=== PATIENT | female | born 1965 | race Caucasian/White ===

== ENCOUNTER 2017-01-10 18:59 | Observation (INO) | payer SELFPAY ==
[~2017-01-10] VITALS: Ht 152.4 cm; Wt 61.0 kg
[~2017-01-10 18:59] MED LIST: MECL-62 PO
[2017-01-10 20:00] VITALS: BP 106/70; PULSE 62; RESP 16; TEMP 98.6; O2SAT 98
[2017-01-10] MEDS ORDERED: SENNOSIDES 8.6 MG TAB PO PRN (20:30)
[2017-01-10] MEDS ORDERED: BISACODYL 10 MG SUPP RECTAL PRN (20:30)
[2017-01-10] MEDS ORDERED: MAGNESIUM HYDROXIDE SUSP 30 ML CUP PO PRN (20:30)
[2017-01-10] MEDS ORDERED: LACTULOSE SYRUP 20 GM/30 ML CUP PO PRN (20:30)
[2017-01-10] MEDS ORDERED: ONDANSETRON HCL 4 MG/2 ML VIAL IVP PRN (20:30)
[2017-01-10] MEDS ORDERED: SODIUM CHLORIDE 0.9% FLUSH 10 ML FLUSH IV FLUSH PRN (20:30)
[2017-01-10] MEDS ORDERED: NALOXONE HCL 0.4 MG/ML AMP IV PUSH PRN (20:30)
[2017-01-10] MEDS ORDERED: DOCUSATE SODIUM 50 MG/SENNA 8.6 MG TAB PO SCH (21:00)
[2017-01-10] MEDS: SODIUM CHLORIDE 0.9% FLUSH 10 ML FLUSH IV FLUSH SCH (22:14)
[2017-01-10] MEDS: ACETAMINOPHEN 325 MG TAB PO PRN (22:15)
[2017-01-10 23:49] VITALS: BP 113/67; PULSE 81; RESP 18; TEMP 97.4; O2SAT 97
[2017-01-11] MEDS: ACETAMINOPHEN 325 MG TAB PO PRN (04:05)
[2017-01-11] MEDS ORDERED: MECLIZINE HCL 25 MG TAB PO PRN (07:45)
[2017-01-11 07:56] LABS: AUTOMATED NEUTROPHIL # 11.5 TH/MM3 (1.8-7.7); BASOPHIL % 0.1 % (0.0-2.0); EOSINOPHIL # 0.1 TH/MM3 (0-0.4); EOSINOPHIL % 0.9 % (0.0-4.0); HEMATOCRIT 40.2 % (35.0-46.0); HEMO FLAGS DIFF FINAL; LYMPH % 15.3 % (9.0-44.0); LYMPHOCYTE # 2.2 TH/MM3 (1.0-4.8); MEAN CELL VOLUME 95.2 FL (80.0-100.0); MEAN CORPUSCULAR HEMOGLOBIN 32.4 PG (27.0-34.0); MONO % 5.6 % (0.0-8.0); NEUT % 78.1 % (16.0-70.0); PLATELET COUNT 245 TH/MM3 (150-450); RED BLOOD COUNT 4.22 MIL/MM3 (4.00-5.30); RED CELL DISTRIBUTION WIDTH 12.9 % (11.6-17.2); WHITE BLOOD COUNT 14.6 TH/MM3 (4.0-11.0)
[2017-01-11 08:00] VITALS: BP_SYST 104; BP_SYST 106; BP_SYST 112; BP_DIAS 54; BP_DIAS 55; BP_DIAS 65; PULSE 60; RESP 16; TEMP 97.9; O2SAT 98
[2017-01-11 08:01] LABS: CHLORIDE 107 MEQ/L (98-107); POTASSIUM 3.8 MEQ/L (3.5-5.1); SODIUM (NA) 139 MEQ/L (136-145)
[2017-01-11 08:10] LABS: ALT (GPT) 30 U/L (10-53); ANION GAP 9 MEQ/L (5-15); AST (GOT) 13 U/L (15-37); BICARBONATE 22.7 MEQ/L (21.0-32.0); BLOOD UREA NITROGEN 13 MG/DL (7-18); GLOMERULAR FILTRATION RATE 100 ML/MIN (>89)
[2017-01-11 08:11] LABS: TOTAL BILIRUBIN ADULT 1.1 MG/DL (0.2-1.0)
[2017-01-11 08:12] LABS: ALKALINE PHOSPHATASE 58 U/L (45-117)
[2017-01-11] MEDS: SODIUM CHLORIDE 0.9% FLUSH 10 ML FLUSH IV FLUSH SCH (09:18)
--- NOTE | 2017-01-11 09:27 | RADRPT ---
EXAM DATE/TIME: 01/11/2017 07:47 [facility] COMPARISON: No previous studies available for comparison. INDICATIONS : Vertigo. MEDICAL HISTORY : Neck pain. Glasses. Dizziness. Headache. Numbness. SURGICAL HISTORY : None. ENCOUNTER: Initial ACUITY: 2 weeks PAIN SCORE: 1/10 LOCATION: Bilateral neck PEAK SYSTOLIC VELOCITIES (cm/sec): ICA/CCA RATIO: Right: 0.9 Left: 1.2 ICA: Right: 77.4 Left: 91.4 CCA: Right: 89.8 Left: 77.1 ECA: Right: 88.0 Left: 110.8 VERTEBRAL: Right: 48.2 antegrade Left: 74.5 antegrade Elevated flow velocities and ICA/CCA ratios have been found to correlate with increased degrees of vessel stenosis, calculated as percentage of diameter relative to a normal segment of distal ICA/CCA FINDINGS: RIGHT CAROTID: Mild plaque formation in the internal carotid artery. No significant stenosis is visualized. The wa veforms are within normal limits. LEFT CAROTID: Mild plaque formation in the internal carotid artery. No significant stenosis is visualized. The wa veforms are within normal limits. VERTEBRAL ARTERIES: Antegrade flow is seen in both vertebral arteries. MISCELLANEOUS: None. CONCLUSION: Mild plaque formation with hemodynamic profile characteristic of less than 50% stenosis. Bry Kowalski MD on January 11, 2017 at 9:24 Board Certified Radiologist. This report was verified electronically.
--- NOTE | 2017-01-11 09:36 | RADRPT ---
EXAM DATE/TIME: 01/11/2017 08:50 [facility] COMPARISON: No previous studies available for comparison. INDICATIONS : Dizziness. Vertigo and right sided fall for 10 days. MEDICAL HISTORY : None. SURGICAL HISTORY : None. ENCOUNTER: Initial ACUITY: 2 weeks PAIN SCORE: 0/10 LOCATION: cranial TECHNIQUE: Multiplanar, multisequence MRI of the brain was performed without contrast. FINDINGS: CEREBRUM: The ventricles are normal for age. No evidence of midline shift, mass lesion, hemorrhage or acute in farction. Incidental note of cavum septum pellucidum. No extraaxial fluid collections are seen. Th e pituitary gland and suprasellar cistern are normal in configuration. WHITE MATTER: There are scattered isolated areas of T2 prolongation, the largest is in the posterior left parietal mid convexity measuring 13 mm with oval shape perpendicular to the axis of the ventricles. Other 1 c m areas of signal are present in the right occipital, left frontal and right frontoparietal region. There were also several rounded areas of T2 prolongation in the cerebellar white matter and one oval area of T2 prolongation in the lateral left cerebellar hemisphere measuring 7 mm. POSTERIOR FOSSA: The cerebellum and brainstem are intact. The 4th ventricle is midline. The cerebellopontine angle is unremarkable. The cerebellar tonsils are normal in position. DIFFUSION IMAGING: No focal areas of restricted diffusion are seen. No evidence of acute infarction. EXTRACRANIAL: The visualized portions of the orbits and paranasal sinuses are unremarkable. CONCLUSION: 1. No evidence of acute blood products or mass effect. 2. Multiple isolated areas of T2 prolongation in the super infratentorial white matter suggesting pos sible demyelinating process such as multiple sclerosis. Bry Kowalski MD on January 11, 2017 at 9:31 Board Certified Radiologist. This report was verified electronically.
--- NOTE | 2017-01-11 10:33 | HHI.HP ---
[facility] Julio César Hroton M.D. Admission Diagnosis Diagnoses: (1) Dizziness Diagnosis: Principal Chief Complaint: Dizziness Travel History International Travel<30 Days: No Contact w/Intl Traveler <30 Da: No History of Present Illness Written by Atilio Camargo, acting as scribe for Dr. Newby on 01/11/17 at 10 :32. 51-year-old female with no chronic medical illnesses who presented to the hospital because of dizziness, vertigo. Patient indicates that her symptoms started on December 31 with dizziness. She states that happened spontaneously when she was sleeping she woke up and had significant dizziness. Whenever she got up to walk she felt as if the room was tilted. She had intermittent nausea with episodic vomiting. He went to the emergency department multiple times and was given Antivert and discharge home. Her last evaluation with ER she was recommended to be admitted, however she left AGAINST MEDICAL ADVICE. Because the medications weren't working and she was not getting any better she went back to emergency department and subsequently admitted for further evaluation and management. Patient states that she has had this in the past and had full workups done. She has undergone this tubular therapy without any improvement. She indicates her last episode was 3 years ago which lasted approximately 3 months. She's not had any other episodes since then. She does not indicate that she is ever undergone any MRI or carotid evaluation. Anatomic value patient she is sitting up in bed. Turning her head side to side without any complications. However when discussing her symptoms with her she states that hers dizziness only happens when she moves herself in different positions. She denies any frequent flights, boat trips, travel. 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 Patient has not had any nausea or vomiting since being here the hospital. Review of Systems Constitutional: COMPLAINS OF: Dizziness Except as stated in HPI: all other systems reviewed are Neg Past Family Social History Past Medical History No chronic medical illnesses Past Surgical History No previous surgeries Reported Medications No chronic home medications Allergies: Coded Allergies: codeine (Verified Allergy, Severe, SEVERE ABDOMINAL PAIN, 01/09/17) abdominal pain Family History Reviewed is significant for heart disease, diabetes and cancer Social History She continues smoke a half a pack a cigarettes a day since she was 18 years old. She drinks alcohol on the weekends. Denies any illicit drugs Physical Exam Vital Signs Vital Signs Date Time Temp Pulse Resp B/P (MAP) Pulse Ox O2 Delivery O2 Flow Rate FiO2 01/11/17 08:00 97.9 60 16 112/54 (73) 98 104/55 (71) 106/65 (79) 01/10/17 23:49 97.4 81 18 113/67 (82) 97 01/10/17 23:15 16 01/10/17 20:00 98.6 62 16 106/70 (82) 98 Physical Exam GENERAL: Well-developed, well-nourished, in no acute distress. alert and orientated HEENT: Head is normocephalic without any lesions or masses noted. Facial features are symmetric. Eyes: Pupils equal round reactive to light. Extraocular muscles are intact. Conjunctivae were clear. No nystagmus Oropharyngeal: Pharynx without any erythema edema. Tongue is midline without deviation. Buccal mucosa is moist without any masses or lesions NECK: Supple without any masses. Trachea midline no deviation. No JVD, no bruits are appreciated. Patient does have palpable paraspinal muscles which are of the cervical spine and spasm noted at C3-C4. There is pain on range of motion of the cervical spine. Upon rotating the head there is no symptoms of dizziness. With neck flexion patient indicates that she did have some dizziness. CARDIAC: Regular rhythm, regular rate. S1/S2 are heard. No murmurs gallops or rubs. LUNGS: Clear to auscultation bilaterally. No wheeze, rhonchi or rales. No use of accessory muscles on inspiration or expiration. ABDOMEN: Soft, nontender. Nondistended. Bowel sounds heard in all 4 quadrants. No organomegaly or masses. Negative rebound, negative guarding EXTREMITIES: No edema, pulses are equal bilaterally. No cyanosis or clubbing NEUROLOGY: Mood and affect appear appropriate. Cranial nerves II through XII grossly intact. Muscle strength 5/5 in upper and lower extremities bilaterally. Deep tendon reflexes are 2+ in upper and lower extremities bilaterally. Laboratory Laboratory Tests Test 01/11/17 06:53 White Blood Count 14.6 Red Blood Count 4.22 Hemoglobin 13.6 Hematocrit 40.2 Mean Corpuscular Volume 95.2 Mean Corpuscular Hemoglobin 32.4 Mean Corpuscular Hemoglobin Concent 34.0 Red Cell Distribution Width 12.9 Platelet Count 245 Mean Platelet Volume 7.9 Neutrophils (%) (Auto) 78.1 Lymphocytes (%) (Auto) 15.3 Monocytes (%) (Auto) 5.6 Eosinophils (%) (Auto) 0.9 Basophils (%) (Auto) 0.1 Neutrophils # (Auto) 11.5 Lymphocytes # (Auto) 2.2 Monocytes # (Auto) 0.8 Eosinophils # (Auto) 0.1 Basophils # (Auto) 0.0 CBC Comment DIFF FINAL Differential Comment Blood Urea Nitrogen 13 Creatinine 0.63 Random Glucose 114 Total Protein 6.6 Albumin 3.1 Calcium Level 9.0 Alkaline Phosphatase 58 Aspartate Amino Transf (AST/SGOT) 13 Alanine Aminotransferase (ALT/SGPT) 30 Total Bilirubin 1.1 Sodium Level 139 Potassium Level 3.8 Chloride Level 107 Carbon Dioxide Level 22.7 Anion Gap 9 Estimat Glomerular Filtration Rate 100 Result Diagram: 01/11/17 0653 01/11/17 0653 Imaging Last Impressions Carotid Artery Ultrasound 01/11/17 0713 Signed Impressions: Service Date/Time: December 07:47 - CONCLUSION: Mild plaque formation with hemodynamic profile characteristic of less than 50%% stenosis. Bry Kowalski MD Brain MRI 01/11/17 0000 Signed Impressions: Service Date/Time: December 08:50 - CONCLUSION: 1. No evidence of acute blood products or mass effect. 2. Multiple isolated areas of T2 prolongation in the super infratentorial white matter suggesting possible demyelinating process such as multiple sclerosis. Bry Kowalski MD Caprini VTE Risk Assessment Caprini VTE Risk Assessment: No/Low Risk (score <= 1) Caprini Risk Assessment Model Point Value = 1 Point Value = 2 Point Value = 3 Point Value = 5 Age 41-60 Minor surgery BMI > 25 kg/m2 Swollen legs Varicose veins or History of unexplained or recurrent spontaneous Oral contraceptives or hormone replacement Sepsis (< 1 month) Serious lung disease, including pneumonia (< 1 month) Abnormal pulmonary function Acute myocardial infarction Congestive heart failure (< 1 month) History of inflammatory bowel disease Medical patient at bed rest Age 61-74 Arthroscopic surgery Major open surgery (> 45 min) Laparoscopic surgery (> 45 min) Malignancy Confined to bed (> 72 hours) Immobilizing plaster cast Central venous access Age >= 75 History of VTE Family history of VTE Factor V Leiden Prothrombin [id number] Lupus anticoagulant Anticardiolipin antibodies Elevated serum homocysteine Heparin-induced thrombocytopenia Other congenital or acquired thrombophilia Stroke (< 1 month) Elective arthroplasty Hip, pelvis, or leg fracture Acute spinal cord injury (< 1 month) Prophylaxis Regimen Total Risk Factor Score Risk Level Prophylaxis Regimen 0-1 Low Early ambulation 2 Moderate Order ONE of the following: *Sequential Compression Device (SCD) *Heparin 5000 units SQ BID 3-4 Higher Order ONE of the following medications: *Heparin 5000 units SQ TID *Enoxaparin/Lovenox 40 mg SQ daily (WT < 150 kg, CrCl > 30 mL/min) *Enoxaparin/Lovenox 30 mg SQ daily (WT < 150 kg, CrCl > 10-29 mL/min) *Enoxaparin/Lovenox 30 mg SQ BID (WT < 150 kg, CrCl > 30 mL/min) AND/OR *Sequential Compression Device (SCD) 5 or more Highest Order ONE of the following medications: *Heparin 5000 units SQ TID (Preferred with Epidurals) *Enoxaparin/Lovenox 40 mg SQ daily (WT < 150 kg, CrCl > 30 mL/min) *Enoxaparin/Lovenox 30 mg SQ daily (WT < 150 kg, CrCl > 10-29 mL/min) *Enoxaparin/Lovenox 30 mg SQ BID (WT < 150 kg, CrCl > 30 mL/min) AND *Sequential Compression Device (SCD) Assessment and Plan Problem List: (1) Vertigo ICD Code: R42 - Dizziness and giddiness (2) Dizziness ICD Code: R42 - Dizziness and giddiness Assessment and Plan 51-year-old female with Dizziness, vertigo, improving MRI studies do not indicate any mass effect. There is multilevel isolated areas suggesting possible demyelinating process such as multiple sclerosis Carotid ultrasound showed mild plaque formation with hemodynamic profile characteristic of less than 50% stenosis Physical therapy evaluation orthostatic vitals were normal Antivert as needed Start scopolamine patch, if patient improves plan on discharge today Abnormal MRI study with suggestive demyelinization process Counseled patient on outpatient follow-up and evaluation DVT prevention Sequential compression devices Discharge disposition Discharge home in stable condition Activity: Ad gume. Diet: Healthy heart diet Medication per medication reconciliation Follow-up primary medical doctor in one week, will need outpatient workup for suggestive demyelinization process This note was transcribed by bessieiblaurita Camargo. I, Dr. Derrick Newby personally performed the history, physical exam, and medical decision making; and confirmed the accuracy of the information in the transcribed note. Authenticated by Dr. Derrick Newby on 01/11/17 at 10:32. Code Status Full code Discussed Condition With Patient Atilio Camargo Jan 11, 2017 10:33 Derrick Newby MD Jan 11, 2017 10:36
[2017-01-11] MEDS ORDERED: SCOPOLAMINE 1.5 MG PATCH T-DERMAL SCH (11:00)
[2017-01-11 12:00] VITALS: BP 99/53; PULSE 96; RESP 16; TEMP 97.9; O2SAT 97
[2017-01-11] MEDS ORDERED: IOHEXOL 350 MG/ML 10 ML VIAL (for RAD DIAG) IVCONTRAST ONE (13:15)
--- NOTE | 2017-01-11 14:16 | RADRPT ---
EXAM DATE/TIME: 01/11/2017 13:08 [facility] COMPARISON: No previous studies available for comparison. INDICATIONS : Vertigo. Evatluate for vertebral/basilar insufficiency. IV CONTRAST: 70 cc Omnipaque 350 (iohexol) IV ; Cumulative dose for multiple exams. RADIATION DOSE: 35.13 CTDIvol (mGy) ; Combined studies MEDICAL HISTORY : None SURGICAL HISTORY : None. ENCOUNTER: Initial ACUITY: 2 weeks PAIN SCALE: 0/10 LOCATION: cranial TECHNIQUE: Volumetric scanning was performed using a multi-row detector CT scanner. The data was post processed with a variety of visualization algorithms including full volume maximum intensity projection, multi -planar sliding thin slab reformation, curved planar reformation, and surface rendering techniques. Using automated exposure control and adjustment of the mA and/or kV according to patient size, radiat ion dose was kept as low as reasonably achievable to obtain optimal diagnostic quality images. DICO M format image data is available electronically for review and comparison. FINDINGS: There is excellent visualization of the major intracranial arteries out to the second-order branch ve ssels. There is no evidence for aneurysm, vessel truncation or stenosis, and no evidence for vascula r malformation. Flow is seen in the left PCOM and in the anterior communicating artery. Special attention is directed to the prior study or circulation. The basilar artery is normal dimens ion. The posterior cerebral and posterior cerebellar arteries are symmetric in size. CONCLUSION: Negative exam. Normal dimension of the basilar artery. Bry Kowalski MD on January 11, 2017 at 14:13 Board Certified Radiologist. This report was verified electronically.
--- NOTE | 2017-01-11 14:29 | RADRPT ---
EXAM DATE/TIME: 01/11/2017 13:08 [facility] COMPARISON: MRI BRAIN W/O CONTRAST, January 11, 2017, 8:50. INDICATIONS : Vertigo. Evatluate for vertebral/basilar insufficiency. IV CONTRAST: 70 cc Omnipaque 350 (iohexol) IV ; Cumulative dose for multiple exams. RADIATION DOSE: 35.13 CTDIvol (mGy) ; Combined studies MEDICAL HISTORY : None SURGICAL HISTORY : None. ENCOUNTER: Initial ACUITY: 2 weeks PAIN SCALE: 0/10 LOCATION: neck Elevated flow velocities and ICA/CCA ratios have been found to correlate with increased degrees of vessel stenosis, calculated as percentage of diameter relative to a normal segment of distal ICA/CCA. TECHNIQUE: Volumetric scanning was performed using a multirow detector CT scanner. The data was post processed with a variety of visualization algorithms including full-volume maximum intensity projection, multip lanar sliding thin-slab reformation, curved-planar reformation, and surface-rendering techniques. Us ing automated exposure control and adjustment of the mA and/or kV according to patient size, radiatio n dose was kept as low as reasonably achievable to obtain optimal diagnostic quality images. DICOM f ormat image data is available electronically for review and comparison. FINDINGS: AORTIC ARCH: There is a three-vessel origin of the great vessels from the aorta. No evidence of ostial narrowing. RIGHT CAROTID: The common carotid artery is intact. The carotid bulb has a normal configuration without ulceration o r narrowing. The internal carotid artery lumen is smooth without stenosis. The external carotid seth ry is intact. LEFT CAROTID: The common carotid artery is intact. The carotid bulb has a normal configuration without ulceration or narrowing. The internal carotid artery lumen has a mildly irregular posterior margin suggesting s ome ulceration of the, but there is no narrowing of the lumen. A small punctate calcification is pre sent at the irregularity.. The external carotid artery is intact. VERTEBRALS: The vertebral arteries have a symmetric diameter. No stenotic lesions are seen. CONCLUSION: 1. Probable ulcerative plaque in the posterior proximal left internal carotid artery without any merly nal stenosis. 2. Normal appearance to the right internal carotid artery. Bry Kowalski MD on January 11, 2017 at 14:23 Board Certified Radiologist. This report was verified electronically.
[2017-01-11] MEDS ORDERED: MECL1TAB42 PO (15:06)
[2017-01-11 16:00] VITALS: BP 104/56; PULSE 69; RESP 16; TEMP 98.3; O2SAT 98
[2017-01-14] MEDS ORDERED: REMOVE OLD SCOPOLAMINE PATCH T-DERMAL SCH (11:00)
== END 2017-01-11 16:36 | disposition home or self-care (01) ==
LOC: PHEDDLT 18:59 → PH3B 19:00 → OBSVTOIN 20:31 → INTOOBSV 20:31
PROVIDERS: ADMIT Hospitalist; ATTEND Hospitalist
DX: R42 Dizziness and giddiness (principal); R11.2 Nausea with vomiting, unspecified; R51 Headache; M54.2 Cervicalgia; R20.0 Anesthesia of skin; F17.210 Nicotine dependence, cigarettes, uncomplicated
CPT/HCPCS: 70496; 70498; 70551; 80053; 85025; 93880; 96374; 97162; 99285; G0378; G8987; G8988; J1100; J2405; Q9967